=== PATIENT | male | born 1990 | race Caucasian/White ===

== ENCOUNTER 2024-07-12 09:38 | Outpatient (AMB) | payer OTHER, SELFPAY ==
--- NOTE | 2024-07-12 09:40 | A.OFFVIS_ITS ---
Vital Signs 07/12/24 09:41 Height 6 ft 1.5 in Weight 198 lb BMI 25.8 BP 116/71 Blood Pressure Location Lt brachial Position Sitting Pulse 81 Intake Visit Reasons: Esophageal Strictures Intake Note: Charles presents in the office as a new patient for a Esophageal Stricture. CC: issues swallowing - cannot take meds or food without issues swallowing and choking. He has Hx of IBS so issues with stomach as well. 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 Has had intermittent sensation of food getting stuck x 10 years but progressively getting worse. Has to xiao everything with water. Not losing weight but has to take his time and cut everything very small. Feels get stuck at two distinct points up high and then again in mid chest. Has had to make himself retch to get food out. Reports his father and uncle also need to get serial dilations. Barium swallow 01/2024: Swallow: Normal oral and pharyngeal phases with no laryngeal penetration or subglottic aspiration. Esophagus: Normal in contour and mucosal appearance. Normal esophageal motility, with prompt transit of liquid barium into the stomach. Smooth bordered luminal narrowing of the gastroesophageal junction in which a 13 mm barium tablet is unable to pass despite subsequent swallows of water and contrast. No hiatal hernia. Despite the use of provocative maneuvers, no gastroesophageal reflux was appreciated during the study. No evidence of esophageal web or outpouching. The stomach and proximal duodenum are grossly normal. Contrast promptly empties from the stomach into a nondilated duodenum. No gastric outlet obstruction. [facility] Family History (Updated 07/12/24 @ 09:48 by CANDACE Torres) Paternal Grandmother Colon cancer Review of Systems Const All systems reviewed & are unremarkable except as noted in HPI and below Physical Exam Vital Signs: Last Vital Signs Pulse 81 07/12/24 09:41 BP 116/71 07/12/24 09:41 BMI result Body Mass Index 25.8 No apparent distress Nonicteric Abdomen soft, nondistended Alert and oriented x3, normal gait Assessment & Plan Assessment & Plan (1) Esophageal stricture: Code(s): K22.2 - Esophageal obstruction Category: Medical (2) Dysphagia: Code(s): R13.10 - Dysphagia, unspecified Category: Medical Plan Ddx include peptic stricture, schatzki' ring, EoE, malignancy. Plan: - Urgent EGD with dilation to be booked - Cont PPI Follow up after egd Coding Level of Care Code New Pt Level 4 (54475) Diagnoses Esophageal stricture K22.2 Dysphagia R13.10
[2024-07-12 09:41] VITALS: BP 116/71; PULSE 81; BMI 25.8
== END 2024-07-12 10:20 | disposition home or self-care (01) ==
LOC: HO.HGI 09:39
PROVIDERS: PCP Nurse Practitioner Family; Visit Provider Internal Medicine
DX: K22.2 Esophageal obstruction (principal); R13.10 Dysphagia, unspecified
CPT/HCPCS: 99204

== ENCOUNTER → 2024-07-12 09:38 | Outpatient (BNVA) | payer OTHER, SELFPAY | PROVIDERS: PCP Nurse Practitioner Family; Visit Provider Internal Medicine | DX: K22.2 Esophageal obstruction (principal); R13.10 Dysphagia, unspecified | CPT/HCPCS: 99202 ==

== ENCOUNTER 2024-07-13 07:31 | Day surgery (SDC) | payer OTHER, SELFPAY ==
[2024-07-13 07:58] VITALS: BMI 26.2
[2024-07-13 08:04] VITALS: BP 116/68; PULSE 56; RESP 16; TEMP 36.4; O2SAT 96
--- NOTE | 2024-07-13 08:31 | MHC.SHP ---
Pre-Procedural Eval Section A - 24 Hr Update-Section A only Date of Service: 07/13/24 The patient is an INPATIENT: No The patient has been examined within 24 hours of the surgical procedure. The History & Physical has been completed within 30 days and I have reviewed it.: Yes Section B - Complete if H&P > 30 days Chief Complaint: Esophageal obstruction Allergies: Allergies Allergy/AdvReac Type Severity Reaction Status Date / Time No Known Allergies Allergy Verified 07/12/24 09:41 Plan Diagnosis/Plan: Unchanged I have reviewed the history and physical and performed a pertinent physical examination on my patient. No changes have occurred unless specified. Time Spent With Patient Time: Total time managing care of this patient today ____ minutes.
--- NOTE | 2024-07-13 08:58 | HO.ANESPROP2 ---
HPI - Anesthesia Eval Consult details Narrative: 34 yo male patient for EGD with Balloon dilatation PMFSH Active Problems Active Problems: All Active Problems (Updated 07/12/24 @ 11:08 by Katja Brand MD) Dysphagia (Acute) Esophageal stricture (Acute) Past Medical History Medical History (Updated 07/13/24 @ 09:36 by Cara Guardado MD) Asthma Family History Family History Paternal Grandmother Colon cancer Family history of problems with anesthesia: No Surgical History History of Problems with Anesthesia: No Social History Social History Patient Tobacco Use Status: Never used Tobacco Second Hand Smoke Exposure: No Use of substances other than those prescribed or required for medical reasons: No Have you been hit, kicked, punched, or otherwise hurt by someone within the past year? If so, by whom?: No Are you DNR?: No Advance Directives: No Advance Directives Information Provided: Yes Advance Directives on File: No Poor oral hygiene: No Meds Allergies Allergy/AdvReac Type Severity Reaction Status Date / Time No Known Allergies Allergy Verified 07/12/24 09:41 Home Medications ?Medication ?Instructions ?Recorded ?Confirmed ?Last Taken ?Type albuterol sulfate 2.5 mg/3 mL mg inhalation Q6H PRN wheezing 07/12/24 Unknown History (0.083 %) solution for nebulization hyoscyamine sulfate 0.125 mg tablet 0.25 mg PO BID 07/12/24 Unknown History lidocaine 5 % topical patch 2 patch topical 07/12/24 Unknown History bepeidox-vehdotpp-kkhgx acid 400 tab PO 07/12/24 Unknown History mcg-vit K 20 mcg-lycop 300 mcg tablet (One-A-Day Men's Multivitamin) ubidecarenone-omega 3-vit E 25 1 cap PO DAILY 07/12/24 Unknown History mg-150 (90-60) mg-200 unit capsule (Co T-60-Beynnyh E-Fish Oil) Exam Height,Weight and Vital Signs: Height 6 ft 1.5 in Weight 91.2 kg Last Vital Signs Temp 97.6 F 07/13/24 08:04 Pulse 56 07/13/24 08:04 Resp 16 07/13/24 08:04 BP 116/68 07/13/24 08:04 Pulse Ox 96 07/13/24 08:04 O2 Del Method Room Air 07/13/24 08:04 Airway Mallampati Class: II TM Dist: >3cm Neck ROM: Full Loose/Missing/Broken Teeth: No (Old crown fell off. Denies loose or missing teeth ) Heart: RRR Lungs: CTAB Assessment and Plan Assessment Anesthesia Assessment: Anesthesia Plan Discussed and Chart Reviewed Final Anesthetic Review Family History of Problems with Anesthesia: No History of Problems with Anesthesia: No NPO: Yes ASA Class: II Final Preanesthetic Review: No Changes in Pt Med Stat, Meds/Allgs Chart Reviewed, Consent Obtained/Reviewed and Anes Risks/Benef Reviewed Patient Risk: Low Procedure Risk: Low Assessment/Block/Sedation in SS: Assess/Block/Sedation-SS Anesthetic Plan Anesthetic Plan: TIVA Disposition: Standard PACU
[2024-07-13] MEDS: Lactated Ringers 1,000 ML 50 ML IVCONT (09:15)
[2024-07-13 09:40] VITALS: BP 109/71; PULSE 90; RESP 13; TEMP 36.6; O2SAT 95
--- NOTE | 2024-07-13 09:42 | P.OP_ITS ---
Operative Note Operative Note Date of Service: 07/13/24 Narrative: Procedure: Esophagogastroduodenoscopy Endoscopist: Katja Brand MD Indication: Esophageal stricture Anesthesia Provider: Dr Cara Guardado Anesthesia Type: MAC ?? EGD Procedure:?? The procedure, indications, preparation and potential complications were reviewed with the patient, who indicated understanding and gave written informed consent to proceed. A physical exam was performed. The endoscope was introduced through the mouth, and advanced to the second part of duodenum. The mucosa was carefully examined on slow withdrawal of the endoscope. The patient tolerated the procedure well. There were no immediate complications.? ? EGD Findings:? * Esophagus:? Diffuse trachealization and linear furrows noted throughout the esophagus suspicious for eosinophilic esophagitis. The Z line was at 42 cm. There was a short stricture at the GE junction that the gastroscope could not traverse through. A through the scope balloon was inserted through the biopsy channel and passed to the GE junction. The esophagus was incrementally dilated from 12-15 mm. Small superficial tear was noted. The balloon was withdrawn. The scope could then easily traverse through GE junction into the stomach. Middle and lower esophagus forceps biopsies were obtained to rule out eosinophilic esophagitis. * Stomach:? Normal mucosa was noted in the stomach. Retroflexion was performed in the cardia. * Duodenum:? Normal mucosa was noted in the whole of the examined duodenum. ? EGD Impressions:? * GE junction stricture (balloon dilation) * Abnormal esophageal mucosa r/o EoE (biopsy) * Normal stomach * Normal duodenum ?? Recommendations:?? * Follow biopsy results. Our office will call or send a letter with results within 7-10 days. * Start omeprazole 20 mg BID * If biopsies confirm EoE, will switch to topical budesonide slurry * Repeat EGD in 4-6 weeks for updilation * Avoid NSAIDs. Above has been reviewed with the patient.
[2024-07-13 09:45] VITALS: BP 108/78; PULSE 88; RESP 16; O2SAT 96
[2024-07-13 09:50] VITALS: BP 122/71; PULSE 82; RESP 17; O2SAT 97
[2024-07-13 09:55] VITALS: BP 113/76; PULSE 67; RESP 17; TEMP 36.7; O2SAT 97
== END 2024-07-13 10:51 | disposition home or self-care (01) ==
PROVIDERS: PCP Nurse Practitioner Family; Visit Provider Internal Medicine
PROC: (CPT 43249; principal; 2024-07-13 09:30)
DX: K22.2 Esophageal obstruction (principal); R13.10 Dysphagia, unspecified; K20.0 Eosinophilic esophagitis; K44.9 Diaphragmatic hernia without obstruction or gangrene
CPT/HCPCS: 43249; 43239; 88305; C1726; J1596; J2003; J2704

== ENCOUNTER → 2024-07-13 07:31 | Outpatient (BNV) | payer OTHER, SELFPAY | PROVIDERS: PCP Nurse Practitioner Family; Visit Provider Internal Medicine | DX: K22.2 Esophageal obstruction (principal); K20.0 Eosinophilic esophagitis | CPT/HCPCS: 43239; 43249 ==

== ENCOUNTER → 2024-07-26 14:09 | Outpatient (AMB) | payer OTHER, SELFPAY ==
--- NOTE | 2024-07-26 14:09 | MHC.OFFVIS ---
Intake Visit Reasons: egd w dilation Intake Note: Charles presents as a telehealth for results to the EGD w/ Dilation. CC: States that he is not having any concerns. 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 Has had intermittent sensation of food getting stuck x 10 years but progressively getting worse. Has to xiao everything with water. Not losing weight but has to take his time and cut everything very small. Feels get stuck at two distinct points up high and then again in mid chest. Has had to make himself retch to get food out. Reports his father and uncle also need to get serial dilations. Barium swallow 01/2024: Swallow: Normal oral and pharyngeal phases with no laryngeal penetration or subglottic aspiration. Esophagus: Normal in contour and mucosal appearance. Normal esophageal motility, with prompt transit of liquid barium into the stomach. Smooth bordered luminal narrowing of the gastroesophageal junction in which a 13 mm barium tablet is unable to pass despite subsequent swallows of water and contrast. No hiatal hernia. Despite the use of provocative maneuvers, no gastroesophageal reflux was appreciated during the study. No evidence of esophageal web or outpouching. The stomach and proximal duodenum are grossly normal. Contrast promptly empties from the stomach into a nondilated duodenum. No gastric outlet obstruction. 07/13/24: GE junction stricture (balloon dilation) Abnormal esophageal mucosa r/o EoE (biopsy) Normal stomach Normal duodenum?? Recommendations:?? Follow biopsy results. Our office will call or send a letter with results within 7-10 days. Start omeprazole 20 mg BID If biopsies confirm EoE, will switch to topical budesonide slurry Repeat EGD in 4-6 weeks for updilation Avoid NSAIDs. Path: A. Esophagus, lower, biopsy: Eosinophilic esophagitis. B. Esophagus, middle, biopsy: Eosinophilic esophagitis. Comment: Eosinophils number over 40 per high-powered field in both biopsies and form microabscesses 07/26/24: Results of the endoscopy reviewed with the patient. He endorses good response to dilation and to taking PPI. Is able to take normal bites of food and swallow them without taking 3-4 sips of water to get them down. Biopsies reviewed, consistent with eosinophilic esophagitis. Reviewed use of topical budesonide slurry. He is already scheduled for repeat endoscopy in September. [facility] Medical History (Updated 07/26/24 @ 14:57 by Katja Brand MD) Asthma Surgical History (Updated 07/26/24 @ 14:11 by CANDACE Torres) History of esophagogastroduodenoscopy (EGD) Family History Paternal Grandmother Colon cancer Social History Patient Tobacco Use Status: Never used Tobacco Second Hand Smoke Exposure: No Review of Systems Const All systems reviewed & are unremarkable except as noted in HPI and below Physical Exam Vital Signs: Video visit: No acute distress No icterus noted No facial asymmetry Speaking in full sentences Telehealth Telehealth Telehealth Platform: [employer] Location of provider rendering services: practice address Location of patient: address on file Patient Identification confirmed using: Name, : Yes Telehealth method: video Patient verbally consented to treatment: Yes Patient verbally consented to billing insurance company: Yes Patient informed of any privacy concerns related to visit: Yes Minutes spent on Phone/Video with Pt.: 17 Assessment & Plan Assessment & Plan (1) Esophageal stricture: Code(s): K22.2 - Esophageal obstruction Category: Medical (2) Dysphagia: Code(s): R13.10 - Dysphagia, unspecified Category: Medical (3) Eosinophilic esophagitis: Code(s): K20.0 - Eosinophilic esophagitis Category: Medical Plan Has dysphagia and esophageal stricture secondary to eosinophilic esophagitis. Good response to dilation and PPI so far. Will add topical budesonide. Also reviewed elimination diet, we will start with 2 food elimination with gluten and dairy. Plan: - continue PPI - start budesonide 0.5 mg b.i.d. mixed in applesauce or honey for slurry. Instructions also posted on the health portal. - repeat EGD September 2024 - 2 food elimination diet with gluten and dairy reviewed Follow up after egd Medications: New budesonide to swallow as a budesonide slurry for EoE. 0.5 mg inhalation BID 30 days 60 mL 2RF K20.0 - Eosinophilic esophagitis Coding Level of Care Code Tele Est Pt Level 4 (48913) Complex EM visit Add On G2211 Diagnoses Esophageal stricture K22.2 Dysphagia R13.10 Eosinophilic esophagitis K20.0
== END ==
LOC: HO.HGI 14:09
PROVIDERS: PCP Nurse Practitioner Family; Visit Provider Internal Medicine
DX: K22.2 Esophageal obstruction (principal); R13.10 Dysphagia, unspecified; K20.0 Eosinophilic esophagitis
CPT/HCPCS: 99214; G2211

== ENCOUNTER 2024-10-12 09:34 | Day surgery (SDC) | payer OTHER, SELFPAY ==
[2024-10-01 13:57] VITALS: BMI 26.2
--- NOTE | 2024-10-04 11:59 | P.CONAN_ITS ---
Documented by User: Pinky Pearl NP 10/04/24 11:59 HPI - Anesthesia Eval Consult details Narrative: 34yo M for Upper Endoscopy with Balloon Dilitation PMFSH Active Problems Active Problems: All Active Problems Eosinophilic esophagitis (Acute) Dysphagia (Acute) Esophageal stricture (Acute) Past Medical History Medical History Asthma Family History Family History Paternal Grandmother Colon cancer Family history of problems with anesthesia: No Surgical History Surgical History History of esophagogastroduodenoscopy (EGD) History of Problems with Anesthesia: No Social History Social History Are you a primary career specialist to a significant other at home: No Do you presently have visiting nurse or other home services: No Patient Tobacco Use Status: Never used Tobacco Second Hand Smoke Exposure: No Have you been hit, kicked, punched, or otherwise hurt by someone within the past year? If so, by whom?: No Are you DNR?: No Advance Directives: No Advance Directives Information Provided: Yes Poor oral hygiene: No Meds Allergies Allergy/AdvReac Type Severity Reaction Status Date / Time No Known Allergies Allergy Verified 10/12/24 11:23 Home Medications ?Medication ?Instructions ?Recorded ?Confirmed ?Last Taken ?Type albuterol sulfate 2.5 mg/3 mL mg inhalation Q6H PRN wh eezing 07/12/24 Unknown History (0.083 %) solution for nebulization hyoscyamine sulfate 0.125 mg tablet 0.25 mg PO BID 08/0110/12/24 Unknown History lidocaine 5 % topical patch 2 patch topical 07/12/24 Unknown History sztjdrtt-wpnhamcf-epwzm acid 400 tab PO 07/12/24 Unkn own History mcg-vit K 20 mcg-lycop 300 mcg tablet (One-A-Day Men's Multivitamin) ubidecarenone-omega 3-vit E 25 1 cap PO DAILY 07/12/24 10/12/24 Unknown History mg-150 (90-60) mg-200 unit capsule (Co K-99-Ksisfrz E-Fish Oil) Exam Height,Weight and Vital Signs: Height 6 ft 1.5 in Weight 91.2 kg Assessment and Plan Assessment Anesthesia Assessment: Chart Reviewed Final Anesthetic Review Family History of Problems with Anesthesia: No History of Problems with Anesthesia: No Documented by User: Mike Sargent MD 10/12/24 12:21 [facility] Past Medical History Medical History Asthma Family History Family History Paternal Grandmother Colon cancer Surgical History Surgical History History of esophagogastroduodenoscopy (EGD) Social History Social History Are you a primary career specialist to a significant other at home: No Do you presently have visiting nurse or other home services: No Patient Tobacco Use Status: Never used Tobacco Second Hand Smoke Exposure: No Have you been hit, kicked, punched, or otherwise hurt by someone within the past year? If so, by whom?: No Are you DNR?: No Advance Directives: No Advance Directives Information Provided: Yes Poor oral hygiene: No Meds Allergies Allergy/AdvReac Type Severity Reaction Status Date / Time No Known Allergies Allergy Verified 10/12/24 11:23 Home Medications ?Medication ?Instructions ?Recorded ?Confirmed ?Last Taken ?Type albuterol sulfate 2.5 mg/3 mL mg inhalation Q6H PRN wh eezing 07/12/24 Unknown History (0.083 %) solution for nebulization hyoscyamine sulfate 0.125 mg tablet 0.25 mg PO BID 08/0110/12/24 Unknown History lidocaine 5 % topical patch 2 patch topical 07/12/24 Unknown History obzvogxh-nyzldziv-zhnlm acid 400 tab PO 07/12/24 Unkn own History mcg-vit K 20 mcg-lycop 300 mcg tablet (One-A-Day Men's Multivitamin) ubidecarenone-omega 3-vit E 25 1 cap PO DAILY 07/12/24 10/12/24 Unknown History mg-150 (90-60) mg-200 unit capsule (Co L-73-Srhcngh E-Fish Oil) Exam Airway Mallampati Class: I TM Dist: >3cm Neck ROM: Full Loose/Missing/Broken Teeth: No Heart: ok Lungs: ok Assessment and Plan Assessment Anesthesia Assessment: Anesthesia Plan Discussed Final Anesthetic Review NPO: Yes ASA Class: II Final Preanesthetic Review: No Changes in Pt Med Stat, Meds/Allgs Chart Reviewed, Consent Obtained/Reviewed and Anes Risks/Benef Reviewed Patient Risk: Low Procedure Risk: Intermediate Anesthetic Plan Anesthetic Plan: Agree w/ Assess. and Plan and TIVA Disposition: Standard PACU
--- NOTE | 2024-10-05 07:07 | MHC.SHP ---
Pre-Procedural Eval Section A - 24 Hr Update-Section A only Date of Service: 10/05/24 The patient is an INPATIENT: No The patient has been examined within 24 hours of the surgical procedure. The History & Physical has been completed within 30 days and I have reviewed it.: No Section B - Complete if H&P > 30 days Chief Complaint: Dysphagia, EOE Relevant Family History (Specify if Yes): Yes Relevant Social History: None Present Medications: see Short Stay Collaborative assessment Medical History: Significant History (Asthma, EOE) History of Previous Operations: Relevant previous surgery/procedure and date(s) (History of EGD) Allergies: Allergies Allergy/AdvReac Type Severity Reaction Status Date / Time No Known Allergies Allergy Verified 07/26/24 14:09 Plan I have reviewed the history and physical and performed a pertinent physical examination on my patient. No changes have occurred unless specified. Time Spent With Patient Time: Total time managing care of this patient today ____ minutes.
--- NOTE | 2024-10-12 10:19 | MHC.SHP ---
Pre-Procedural Eval Section A - 24 Hr Update-Section A only Date of Service: 10/12/24 Section B - Complete if H&P > 30 days Chief Complaint: Dysphagia, EOE Details of Present Illness: Asthma Surgical History (Updated 07/26/24 @ 14:11 by CANDACE Torres) History of esophagogastroduodenoscopy (EGD) Present Medications: see Short Stay Collaborative assessment Allergies: Allergies Allergy/AdvReac Type Severity Reaction Status Date / Time No Known Allergies Allergy Verified 07/26/24 14:09 Review of Systems Review of Systems Comment: 10 point ROS negative Exam Exam Comment: Gen appear: No acute distress HEENT: no icterus Chest: No overt resp distress Abd: soft, nontender, nondistended Psych: Stable affect, answering questions appropriately Neuro: A/Ox3 noted to move all extremities spontaneously Ext: no peripheral edema Plan Diagnosis/Plan: Unchanged I have reviewed the history and physical and performed a pertinent physical examination on my patient. No changes have occurred unless specified. Time Spent With Patient Time: Total time managing care of this patient today ____ minutes.
[2024-10-12] MEDS: Lactated Ringers 1,000 ML 100 ML IVCONT (10:44)
--- NOTE | 2024-10-12 11:20 | PC.NURSE ---
Dr. Sargent aware that patient ate 2 skittles candies at 0800. Okay to proceed, no interventions at this time.
[2024-10-12 11:21] VITALS: BP 122/70; PULSE 50; RESP 18; TEMP 36.6; O2SAT 100
--- NOTE | 2024-10-12 12:39 | P.OP_ITS ---
Operative Note Operative Note Date of Service: 10/12/24 Narrative: Procedure: Esophagogastroduodenoscopy Endoscopist: Katja Brand MD Indication: Eosinophilic esophagitis, esophageal stricture Anesthesia Provider: Dr Mike Sargent Anesthesia Type: MAC ?? EGD Procedure:?? The procedure, indications, preparation and potential complications were review ed with the patient, who indicated understanding and gave written informed consent to proceed. A physical exam was performed. The endoscope was introduced through the mouth, and advanced to the second part of duodenum. The mucosa was carefully examined on slow withdrawal of the endoscope. The patient tolerated the procedure well. There were no immediate complications.? ? EGD Findings:? * Esophagus:? Diffuse trachealization and linear furrows noted throughout the esophagus consistent with known eosinophilic esophagitis. The Z line was at 42 cm. There was a short stricture at the GE junction. The gastroscope was gently maneuvered through this stricture to dilate it. Middle and lower esophagus forceps biopsies were obtained to monitor eosinophilic count. * Stomach:? Normal mucosa was noted in the stomach. Retroflexion was performed in the cardia. * Duodenum:? Erythema, edema and somewhat blunted villi were noted throughout the duodenum. Cold forceps biopsies were taken from the duodenal bulb and 2nd portions of duodenum to rule out celiac sprue. Additional intervention: A through the scope balloon was inserted through the biopsy channel and passed to the GE junction. The esophagus was incrementally dilated from 12-15 mm. Small superficial tear was noted from 7 o clock to 10 o clock confirming successful dilation.. ? EGD Impressions:? * GE junction stricture (balloon dilation) * Abnormal esophageal mucosa from known EoE (biopsy) * Normal stomach * Abnormal duodenal mucosa (biopsy) ?? Recommendations:?? * Follow biopsy results. Our office will call or send a letter with results within 7-10 days. * Patient reports non-adherence to budesonide slurry. This is likely why sx are still persistent and the GEJ stricture has not remodeled. Counseled to take budesonide as prescribed twice a day daily. * Repeat EGD in 6-8 weeks for updilation * Avoid NSAIDs. Above has been reviewed with the patient.
[2024-10-12 12:45] VITALS: BP 116/73; PULSE 83; RESP 12; TEMP 36.2; O2SAT 93
== END 2024-10-12 13:16 | disposition home or self-care (01) ==
PROVIDERS: PCP Nurse Practitioner Family; Visit Provider Internal Medicine
PROC: (CPT 43249; principal; 2024-10-12 12:00)
DX: R13.10 Dysphagia, unspecified (principal); K22.2 Esophageal obstruction; K20.0 Eosinophilic esophagitis; K29.80 Duodenitis without bleeding; K22.89 Other specified disease of esophagus; K44.9 Diaphragmatic hernia without obstruction or gangrene; J45.909 Unspecified asthma, uncomplicated
CPT/HCPCS: 43249; 43239; 88305; 88313; C1726; J2003; J2704

== ENCOUNTER → 2024-10-12 09:34 | Outpatient (BNV) | payer OTHER, SELFPAY | PROVIDERS: PCP Nurse Practitioner Family; Visit Provider Internal Medicine | DX: R13.10 Dysphagia, unspecified (principal); K22.2 Esophageal obstruction; K20.90 Esophagitis, unspecified without bleeding; K31.89 Other diseases of stomach and duodenum | CPT/HCPCS: 43239; 43249 ==

== ENCOUNTER 2024-10-18 14:01 | Outpatient (AMB) | payer OTHER, SELFPAY ==
--- OUTSIDE RECORDS SUMMARY | 2024-08-09 12:40 | XMS_ITS | Encounter Summary ---
Author Organization [facility] Address [address] [place] [phone] Phone Care Team Providers Care Wood Scaler Name Role Phone Negro Dickey MD Primary Care Provid er Encounter Details Date Type Department Care Team (Late st Contact Info) Description 08/09/2024 12:40 PM EDT Hospital Encounter [facility] [address] [place] [id number] Marga Luque FNP [address] [place] [id number] [email or web address] Social History Tobacco Use Types Packs/Day Years Used Date Smoking Tobacco: Never Assessed Education Answer Date Recorded Are you interested in more education? Not on bethany e 08/04/2024 Are you concerned about learning? Not on file 08/04/2024 No 08/04/2024 No 08/04/2024 Digital Access Answer Date Recorded No 08/04/2024 No 08/04/2024 Reliable internet access at home? Not on file 08/04/2024 Device with a working camera? Not on file Sex and Gender Information Value Date Recorded Sex Assigned at Not on file Legal Sex Male 10:01 AM EDT Gender Identity Not on file Sexual Orientation Not on file documented as of this encounter Plan of Treatment Not on file documented as of this encounter Procedures Procedure Name Priority Date/Time Associated Diagnosis Comments XR CHEST PA AND LATERAL 2 VIEWS Urgent/patient waiting 08/09/2024 12:44 PM EDT Asthma with acute exacerbation, unspecified asthma severity, unspecified whether persistent documented in this encounter Results * XR CHEST PA AND LATERAL 2 VIEWS (08/09/2024 12:44 PM EDT) Anatomical Region Laterality Modality Chest Computed Radiogr aphy 08/09/2024 1:24 PM EDT Impressions 08/09/2024 1:25 PM EDT No acute abnormality. Narrative 08/09/2024 1:25 PM EDT XR CHEST PA AND LATERAL 2 VIEWS Referring clinician's provided indication for this examination in Epic: Cough; sob, hx asthma COMPARISON: None FINDINGS: Devices/Tubes/Lines: None. Lungs: No focal consolidation or pulmonary edema. Pleura: No pleural effusion or pneumothorax. Heart/Mediastinum: Normal heart and mediastinum. Bones/Soft Tissues: No significant skeletal abnormality. Procedure Note Anastacia Leos MBBS - 08/09/2024 XR CHEST PA AND LATERAL 2 VIEWS Referring clinician's provided indication for this examination in Epic:Cough; sob, hx asthma COMPARISON: None FINDINGS: Devices/Tubes/Lines: None. Lungs: No focal consolidation or pulmonary edema. Pleura: No pleural effusion or pneumothorax. Heart/Mediastinum: Normal heart and mediastinum. Bones/Soft Tissues: No significant skeletal abnormality. IMPRESSION: No acute abnormality. Marga Luque WHEEL SETTER IMG XR CHEST Final Resul t documented in this encounter Visit Diagnoses Not on filedocumented in this encounter Care Teams Wood Scaler Relationship Specialty Start Date End Date Nergo Dickey MD [address] [place] [address] PCP - General 08/04/24 documented as of this encounter Additional Source Comments The information contained in this document represents components of the legal health record. It is not the complete legal health record.[facility]
--- NOTE | 2024-10-18 14:01 | A.OFFVIS_ITS ---
Intake Visit Reasons: s/p egd w dilation Intake Note: Charles presents in the office as a follow up for EGD w/ Dilation. CC: Not having any concerns since the EGD w/ Dilation. Spring Winder Required: No Allergies No Known Allergies Allergy (Verified 10/12/24 11:23) HPI Comments Details: 34 y.o M who was referred for esophageal stricture. Has had intermittent sensation of food getting stuck x 10 years but progressively getting worse. Has to xiao everything with water. Not losing weight but has to take his time and cut everything very small. Feels get stuck at two distinct points up high and then again in mid chest. Has had to make himself retch to get food out. Reports his father and uncle also need to get serial dilations. Barium swallow 01/2024: Swallow: Normal oral and pharyngeal phases with no laryngeal penetration or subglottic aspiration. Esophagus: Normal in contour and mucosal appearance. Normal esophageal motility, with prompt transit of liquid barium into the stomach. Smooth bordered luminal narrowing of the gastroesophageal junction in which a 13 mm barium tablet is unable to pass despite subsequent swallows of water and contrast. No hiatal hernia. Despite the use of provocative maneuvers, no gastroesophageal reflux was appreciated during the study. No evidence of esophageal web or outpouching. The stomach and proximal duodenum are grossly normal. Contrast promptly empties from the stomach into a nondilated duodenum. No gastric outlet obstruction. 07/13/24: * GE junction stricture (balloon dilation) * Abnormal esophageal mucosa r/o EoE (biopsy) * Normal stomach * Normal duodenum?? Recommendations:?? * Follow biopsy results. Our office will call or send a letter with results within 7-10 days. * Start omeprazole 20 mg BID * If biopsies confirm EoE, will switch to topical budesonide slurry * Repeat EGD in 4-6 weeks for updilation * Avoid NSAIDs. Path: A. Esophagus, lower, biopsy: Eosinophilic esophagitis. B. Esophagus, middle, biopsy: Eosinophilic esophagitis. Comment: Eosinophils number over 40 per high-powered field in both biopsies and form microabscesses 07/26/24: Results of the endoscopy reviewed with the patient. He endorses good response to dilation and to taking PPI. Is able to take normal bites of food and swallow them without taking 3-4 sips of water to get them down. Biopsies reviewed, consistent with eosinophilic esophagitis. Reviewed use of topical budesonide slurry. He is already scheduled for repeat endoscopy in September. 10/12/24: * GE junction stricture (balloon dilation) * Abnormal esophageal mucosa from known EoE (biopsy) * Normal stomach * Abnormal duodenal mucosa (biopsy) Path: A. Duodenum, biopsy: Duodenal mucosa with preserved villi and no specific change. B. Esophagus, lower, biopsy: Squamous mucosa with hyperplasia spongiosis, and n umerous intraepithelial eosinophils (focally greater than 100 per high-power field), consistent with eosinophilic esophagitis; no columnar mucosa present. C. Esophagus, middle, biopsy: Squamous mucosa with hyperplasia spongiosis, and numerous intraepithelial eosinophils (focally greater than 70 per high-power field), consistent with eosinophilic esophagitis; no columnar mucosa present. 10/18/24: Here for a video telehealth visit. Discussed EGD and biopsy findings. Reviewed with the patient that burden of esophagitis has increased from before, likely due to nonadherence to treatment. Now, reports good compliance with budesonide twice a day since EGD. Notes that has increased diarrhea since taking this was applesauce. Not taking concomitant PPI with this. Has noted slight improvement in swallowing since EGD with dilation. He is aware that he will need repeat endoscopy in 4-8 weeks. [facility] Medical History Asthma Surgical History History of esophagogastroduodenoscopy (EGD) Family History Paternal Grandmother Colon cancer Social History Are you a primary animal care assistant to a significant other at home: No Do you presently have visiting nurse or other home services: No Patient Tobacco Use Status: Never used Tobacco Second Hand Smoke Exposure: No Review of Systems Const All systems reviewed & are unremarkable except as noted in HPI and below Physical Exam Exam Exam: Video visit: No acute distress No icterus noted No facial asymmetry Speaking in full sentences Telehealth Telehealth Telehealth Platform: [employer] Location of provider rendering services: practice address Location of patient: address on file Patient Identification confirmed using: Name, : Yes Telehealth method: video Patient verbally consented to treatment: Yes Patient verbally consented to billing insurance company: Yes Patient informed of any privacy concerns related to visit: Yes Minutes spent on Phone/Video with Pt.: 10 Assessment & Plan Assessment & Plan (1) Esophageal stricture: Code(s): K22.2 - Esophageal obstruction Category: Medical (2) Dysphagia: Code(s): R13.10 - Dysphagia, unspecified Category: Medical (3) Eosinophilic esophagitis: Code(s): K20.0 - Eosinophilic esophagitis Category: Medical Plan Has dysphagia and esophageal stricture secondary to eosinophilic esophagitis. Unfortunately this worsened over time due to non adherence to elimination that, PPI and topical steroid therapy. Patient has resumed topical steroid therapy, we will also advised to resume at least once daily PPI in addition to budesonide b.i.d.. Plan: - add omeprazole 20 mg once daily - continue budesonide 0.5 mg b.i.d. mixed in applesauce or honey for slurry. - repeat EGD with dilation to be booked in 4-8 weeks - if continues to have high eos, will review increasing budesonide to 1 mg BID vs switching to Dupixent Follow up after egd Medications: Changed From omeprazole 20 mg PO BID 90 days 180 caps 0RF To omeprazole 20 mg PO DAILY 90 caps 1RF 90 days Refilled budesonide to swallow as a budesonide slurry for EoE. 0.5 mg inhalation BID 60 mL 2RF 30 days K20.0 - Eosinophilic esophagitis Coding Level of Care Code Tele Est Pt Level 5 (68569) Complex EM visit Add On G2211 Diagnoses Esophageal stricture K22.2 Dysphagia R13.10 Eosinophilic esophagitis K20.0
== END 2024-10-19 15:12 | disposition home or self-care (01) ==
PROVIDERS: PCP Nurse Practitioner Family; Visit Provider Internal Medicine
DX: K22.2 Esophageal obstruction (principal); R13.10 Dysphagia, unspecified; K20.0 Eosinophilic esophagitis
CPT/HCPCS: 98004

== ENCOUNTER 2024-11-09 12:35 | Day surgery (SDC) | payer OTHER, SELFPAY ==
--- NOTE | 2024-11-05 11:59 | HO.ANESPROP2 ---
Documented by User: Pinky Pearl NP 11/05/24 12:00 HPI - Anesthesia Eval Consult details Narrative: 34yo M for Upper Endoscopy with Balloon Dilitation s/p same 10/2024 [facility] Active Problems Active Problems: All Active Problems Eosinophilic esophagitis (Acute) Dysphagia (Acute) Esophageal stricture (Acute) Past Medical History Medical History Asthma Family History Family History Paternal Grandmother Colon cancer Family history of problems with anesthesia: No Surgical History Surgical History History of esophagogastroduodenoscopy (EGD) History of Problems with Anesthesia: No Social History Social History Are you a primary nurse behavioral health care to a significant other at home: No Do you presently have visiting nurse or other home services: No Patient Tobacco Use Status: Never used Tobacco Second Hand Smoke Exposure: No Use of substances other than those prescribed or required for medical reasons: No Are you DNR?: No Advance Directives: No Advance Directives Information Provided: Yes Poor oral hygiene: No Meds Allergies Allergy/AdvReac Type Severity Reaction Status Date / Time No Known Allergies Allergy Verified 10/12/24 11:23 Home Medications ?Medication ?Instructions ?Recorded ?Confirmed ?Last Taken ?Type albuterol sulfate 2.5 mg/3 mL mg inhalation Q6H PRN wheezing 07/12/24 Unknown History (0.083 %) solution for nebulization hyoscyamine sulfate 0.125 mg tablet 0.25 mg PO BID 07/12/24 10/12/24 Unknown History lidocaine 5 % topical patch 2 patch topical 07/12/24 Unknown History vqzfzxde-svvjqenc-rrobx acid 400 tab PO 07/12/24 Unknown History mcg-vit K 20 mcg-lycop 300 mcg tablet (One-A-Day Men's Multivitamin) ubidecarenone-omega 3-vit E 25 1 cap PO DAILY 07/12/24 10/12/24 Unknown History mg-150 (90-60) mg-200 unit capsule (Co L-04-Lvjqhfn E-Fish Oil) Assessment and Plan Assessment Anesthesia Assessment: Chart Reviewed Final Anesthetic Review Family History of Problems with Anesthesia: No History of Problems with Anesthesia: No Documented by User: Mike Sargent MD 11/09/24 13:33 [facility] Past Medical History Medical History Asthma Family History Family History Paternal Grandmother Colon cancer Surgical History Surgical History History of esophagogastroduodenoscopy (EGD) Social History Social History Are you a primary nurse behavioral health care to a significant other at home: No Do you presently have visiting nurse or other home services: No Patient Tobacco Use Status: Never used Tobacco Second Hand Smoke Exposure: No Use of substances other than those prescribed or required for medical reasons: No Are you DNR?: No Advance Directives: No Advance Directives Information Provided: Yes Poor oral hygiene: No Meds Allergies Allergy/AdvReac Type Severity Reaction Status Date / Time No Known Allergies Allergy Verified 10/12/24 11:23 Home Medications ?Medication ?Instructions ?Recorded ?Confirmed ?Last Taken ?Type albuterol sulfate 2.5 mg/3 mL mg inhalation Q6H PRN wheezing 07/12/24 Unknown History (0.083 %) solution for nebulization hyoscyamine sulfate 0.125 mg tablet 0.25 mg PO BID 07/12/24 10/12/24 Unknown History lidocaine 5 % topical patch 2 patch topical 07/12/24 Unknown History rceqhzkp-unovfxgo-urkog acid 400 tab PO 07/12/24 Unknown History mcg-vit K 20 mcg-lycop 300 mcg tablet (One-A-Day Men's Multivitamin) ubidecarenone-omega 3-vit E 25 1 cap PO DAILY 07/12/24 10/12/24 Unknown History mg-150 (90-60) mg-200 unit capsule (Co A-63-Wrudvoa E-Fish Oil) Exam Airway Mallampati Class: I TM Dist: >3cm Neck ROM: Full Loose/Missing/Broken Teeth: No Heart: ok Lungs: ok Assessment and Plan Assessment Anesthesia Assessment: Anesthesia Plan Discussed Final Anesthetic Review NPO: Yes ASA Class: II Final Preanesthetic Review: No Changes in Pt Med Stat, Meds/Allgs Chart Reviewed, Consent Obtained/Reviewed and Anes Risks/Benef Reviewed Patient Risk: Intermediate Procedure Risk: Intermediate Anesthetic Plan Anesthetic Plan: Agree w/ Assess. and Plan and TIVA Disposition: Standard PACU
[2024-11-09 12:53] VITALS: BP 143/65; PULSE 80; RESP 16; TEMP 36.7; O2SAT 98; BMI 24.6
[2024-11-09] MEDS: Lactated Ringers 1,000 ML 100 ML IVCONT (13:06)
--- NOTE | 2024-11-09 13:13 | MHC.SHP ---
Pre-Procedural Eval Section A - 24 Hr Update-Section A only Date of Service: 11/09/24 The patient is an INPATIENT: No The patient has been examined within 24 hours of the surgical procedure. The History & Physical has been completed within 30 days and I have reviewed it.: Yes Section B - Complete if H&P > 30 days Chief Complaint: Esophageal obstruction Allergies: Allergies Allergy/AdvReac Type Severity Reaction Status Date / Time No Known Allergies Allergy Verified 10/12/24 11:23 Plan Diagnosis/Plan: Unchanged I have reviewed the history and physical and performed a pertinent physical examination on my patient. No changes have occurred unless specified. Time Spent With Patient Time: Total time managing care of this patient today ____ minutes.
[2024-11-09 14:10] VITALS: BP 110/67; PULSE 99; RESP 16; TEMP 36.4; O2SAT 94
--- NOTE | 2024-11-09 14:15 | P.OP_ITS ---
Operative Note Operative Note Date of Service: 11/09/24 Narrative: Procedure: Esophagogastroduodenoscopy Endoscopist: Katja Brand MD Indication: Eosinophilic esophagitis, esophageal stricture Anesthesia Provider: Dr Mike Sargent Anesthesia Type: MAC ?? EGD Procedure:?? The procedure, indications, preparation and potential complications were review ed with the patient, who indicated understanding and gave written informed consent to proceed. A physical exam was performed. The endoscope was introduced through the mouth, and advanced to the second part of duodenum. The mucosa was carefully examined on slow withdrawal of the endoscope. The patient tolerated the procedure well. There were no immediate complications.? ? EGD Findings:? * Esophagus:? Diffuse trachealization and linear furrows noted throughout the esophagus consistent with known eosinophilic esophagitis. The Z line was at 42 cm. There was a short stricture at the GE junction. There was also another stricture at 35 cm. The gastroscope could easily traverse through both of these. Middle and lower esophagus forceps biopsies were obtained to monitor eosinophilic count. * Stomach:? Normal mucosa was noted in the stomach. Retroflexion was performed in the cardia. * Duodenum:? Normal duodenal mucosa noted. Additional intervention: A through the scope balloon was inserted through the biopsy channel and passed to the GE junction. The esophagus was incrementally dilated from 12-15 mm. Small superficial tear was noted at GE junction at 7 o clock as well as at 35-37 cm confirming successful dilation of both the strictures. ? EGD Impressions:? * Esophageal strictures at 35 cm and 42 cm (balloon dilation) * Abnormal esophageal mucosa from known EoE (biopsy) * Normal stomach * Normal duodenum ?? Recommendations:?? * Follow biopsy results. Our office will call or send a letter with results within 7-10 days. * Continue to take budesonide as prescribed twice a day daily. * Continue Omeprazole 20 mg daily * This EGD was performed on 4 weeks of BID budesonide, if path does not show meaningful improvement in Eos count, will switch to dupixent. * Repeat EGD in 8 weeks for updilation * Avoid NSAIDs. Above has been reviewed with the patient.
[2024-11-09 14:25] VITALS: PULSE 90; RESP 18; O2SAT 99
== END 2024-11-09 15:15 | disposition home or self-care (01) ==
PROVIDERS: PCP Nurse Practitioner Family; Visit Provider Internal Medicine
PROC: (CPT 43249; principal; 2024-11-09 14:00)
DX: K22.2 Esophageal obstruction (principal); R13.10 Dysphagia, unspecified; K20.0 Eosinophilic esophagitis; I10 Essential (primary) hypertension; Z79.899 Other long term (current) drug therapy; J45.909 Unspecified asthma, uncomplicated
CPT/HCPCS: 43249; 43239; 88305; C1726; J2003; J2704

== ENCOUNTER → 2024-11-09 12:35 | Outpatient (BNV) | payer OTHER, SELFPAY | PROVIDERS: PCP Nurse Practitioner Family; Visit Provider Internal Medicine | DX: K20.0 Eosinophilic esophagitis (principal); K22.2 Esophageal obstruction | CPT/HCPCS: 43239; 43249 ==

== ENCOUNTER 2024-12-29 14:00 | Outpatient (RCR) | payer OTHER, SELFPAY ==
[2024-12-22 14:54] VITALS: BP 119/72; PULSE 74; RESP 16; TEMP 36.7; O2SAT 97
[2024-12-22] MEDS: DUPILUMAB 300 MG/2 ML SUBCUT (15:00)
--- NOTE | 2024-12-22 15:11 | HO.INF ---
1/2 injectable pens used. second pen in box returned to pharmacy staff.
[2024-12-29 14:13] VITALS: BP 124/63; PULSE 81; RESP 16; TEMP 36.7; O2SAT 97
[2024-12-29] MEDS: DUPILUMAB 300 MG/2 ML SUBCUT (14:14)
== END 2024-12-29 15:16 | disposition home or self-care (01) ==
LOC: HO.INF 14:00
PROVIDERS: Visit Provider Internal Medicine
DX: K20.0 Eosinophilic esophagitis (principal)
CPT/HCPCS: 96374; J3590